=== PATIENT | male | born 1970 | race Two or more races ===

== ENCOUNTER 2019-08-25 08:57 | Emergency (ER) | payer OTHER ==
[2019-08-25 09:17] VITALS: BP 130/72; PULSE 63; BMI 36.0
--- NOTE | 2019-08-25 09:50 | PDOC ---
History of Present Illness - General Chief Complaint: Pain Stated Complaint: KNEE PAIN Time Seen by Provider: 08/25/19 09:17 History Source: Patient - History of Present Illness Occurred: reports: other Lower Extremity Pain Location: bilateral: knee Past History - Past Medical History Allergies/Adverse Reactions: Allergies Allergy/AdvReac Type Severity Reaction Status Date / Time No Known Allergies Allergy Verified 08/25/19 09:12 Home Medications: Ambulatory Orders Ibuprofen [Motrin -] 800 mg PO Q6H #30 tablet 08/25/19 COPD: No - Psycho Social/Smoking Cessation Hx Smoking History: Never smoked Have you smoked in the past 12 months: No Hx Alcohol Use: Yes Drug/Substance Use Hx: No Review of Systems - Review of Systems Constitutional: No: Chills, Fever Musculoskeletal: Yes: Joint Pain. No: Joint Swelling *Physical Exam - Vital Signs Last Vital Signs Temp Pulse Resp BP Pulse Ox 63 18 130/72 98 08/25/19 09:13 08/25/19 09:13 08/25/19 09:13 08/25/19 09:13 - Physical Exam General Appearance: Yes: Appropriately Dressed. No: Apparent Distress HEENT: positive: Normal Voice Neck: positive: Supple Respiratory/Chest: negative: Respiratory Distress Extremity: positive: Normal Inspection, Normal Range of Motion. negative: Tender, Swelling Integumentary: positive: Dry, Warm Neurologic: positive: Fully Oriented, Alert, Normal Mood/Affect Medical Decision Making - Medical Decision Making 08/25/19 09:48 49-year-old male, denies any known past medical history, here with bilateral knee pain. Patient states he has had right knee pain for years and left knee pain for several months. For unclear reason, has never seek medical treatment. Here today because pain is gradually getting worse. No trauma in past but does play soccer and continues to do so. Has not taken anything for pain. Well -appearing in no apparent distress with unremarkable knee exam. Pain meds offered in ED but patient declines. Will dc with pain medication to take as needed and ortho referral for further evaluation Discharge - Discharge Information Problems reviewed: Yes Clinical Impression/Diagnosis: Knee pain, bilateral Qualifiers: Chronicity: chronic Qualified Code(s): M25.561 - Pain in right knee; M25.562 - Pain in left knee; G89.29 - Other chronic pain Condition: Good Disposition: HOME - Additional Discharge Information Prescriptions: Ibuprofen [Motrin -] 800 mg PO Q6H #30 tablet - Follow up/Referral Referrals: Maurice Zuniga DO [Staff Physician] - - Patient Discharge Instructions Patient Printed Discharge Instructions: DI for Knee Pain Additional Instructions: Cause of your pain is unclear at this time but she will need further evaluation with an orthopedics for possible MRI Please take Motrin as needed for pain Please call the number in the back of your insurance card to get a list of primary care physicians in your area - Post Discharge Activity Work/Back to School Note: Back to Work
== END 2019-08-25 10:06 | disposition home or self-care (01) ==
LOC: JERFT 08:57
DX: M25.561 Pain in right knee (principal); G89.29 Other chronic pain
CPT/HCPCS: 99281-25